=== PATIENT | female | born 1970 | race Caucasian/White ===

== ENCOUNTER 2022-12-05 12:10 | Emergency (ER) | payer OTHER ==
[2022-12-05 12:19] VITALS: BP 128/80; PULSE 95
[2022-12-05] MEDS ORDERED: Sodium Chloride 0.9% 10 ML Syringe FLUSH PRN (12:21)
[2022-12-05 12:34] LABS: BASOPHILS ABSOLUTE AUTO 0.02 K/mm3 (0.01-0.08); BASOPHILS PERCENT AUTO 0.3 % (0.1-1.2); EOSINOPHILS ABSOLUTE AUTO 0.13 K/mm3 (0.04-0.36); EOSINOPHILS PERCENT AUTO 1.7 (0.7-5.8); HEMATOCRIT 44.2 % (34.1-44.9); IMMATURE GRAN ABSOLUTE AUTO 0.01 K/mm3 (0.00-0.10); IMMATURE GRAN PERCENT AUTO 0.1 % (<=1.0); LYMPHOCYTES ABSOLUTE AUTO 2.09 K/mm3 (1.18-3.74); LYMPHOCYTES PERCENT AUTO 27.4 % (19.3-51.7); MEAN CORPUSCULAR HEMOGLOBIN 27.3 pg (25.6-32.2); MEAN CORPUSCULAR HGB CONC 33.3 g/dl (32.2-35.5); MEAN PLATELET VOLUME 10.9 fl (9.4-12.3); MONOCYTES ABSOLUTE AUTO 0.64 K/mm3 (0.24-0.36); MONOCYTES PERCENT AUTO 8.4 % (4.7-12.5); NEUTROPHILS ABSOLUTE AUTO 4.73 K/mm3 (1.56-6.13); NEUTROPHILS PERCENT AUTO 62.1 % (34.0-71.1); PLATELET COUNT,PLT 249 K/mm3 (182-369); RED BLOOD CELL COUNT 5.38 M/mm3 (3.98-5.22); WHITE BLOOD CELL COUNT,WBC 7.62 K/mm3 (3.98-10.04)
[2022-12-05 12:36] LABS: HEMOGLOBIN 14.7 gm/dl (11.2-15.7); MEAN CORPUSCULAR VOLUME 82.2 fl (79.4-94.8)
[2022-12-05 13:10] LABS: A/G RATIO 1.1 (1-2); ANION GAP 12.8 (5-15); BILIRUBIN TOTAL 0.6 mg/dL (0.2-1.0); BUN/CREATININE RATIO 18.8 (14-18); CALCIUM 9.5 mg/dL (8.5-10.1); CREATININE 0.8 mg/dL (0.55-1.02); EST CRCL DRUG DOSING (CG) 61.37 mL/min; MAGNESIUM 2.2 mg/dL (1.8-2.4); POTASSIUM,K 3.8 mEq/L (3.5-5.1); PROTEIN TOTAL,TP 7.8 g/dl (6.4-8.2)
[2022-12-05 13:21] LABS: T4 FREE 0.99 ng/dL (0.76-1.46); TSH 1.153 uIU/mL (0.358-3.74)
== END 2022-12-05 17:02 | disposition home or self-care (01) ==
LOC: JD.ED 12:10
DX: R77.8 Other specified abnormalities of plasma proteins (principal); Z88.8 Allergy status to other drugs, medicaments and biological substances; Z88.5 Allergy status to narcotic agent
CPT/HCPCS: 36415; 71046; 80053; 83735; 84439; 84443; 84484; 85025; 85379; 93005; 99285; J3490; 93010; 99284